=== PATIENT | female | born 1970 | race Two or more races ===

== ENCOUNTER 2023-04-18 02:28 | Emergency (ER) | payer OTHER ==
[~2023-04-18] VITALS: Ht 157.5 cm; Wt 86.2 kg
[~2023-04-18 02:28] MED LIST: FLECTOR1 EACH TD
[2023-04-18 03:57] LABS: HEMATOCRIT 41.3 % (36.0-45.00); MEAN CELL VOLUME 85.3 fL (80.00-100.00); MEAN CORPUSCULAR HGB CONC 33.9 g/dl (32.0-36.0); PLATELET COUNT 318 K/uL (150-450); RED BLOOD COUNT 4.85 M/uL (4.00-6.00)
[2023-04-18 04:10] LABS: ALBUMIN 4.1 gm/dL (3.4-5.0); BILIRUBIN TOTAL 0.56 mg/dL (0.3-1.2); CALCIUM 10.4 mg/dL (8.5-10.1); CREATININE SERUM 1.04 mg/dL (0.55-1.02); GFR 55.86; GLOBULINA 4.6 G/DL (2.4-3.5); POTASSIUM 4.15 mEq/L (3.5-5.1); TOTAL PROTEIN 8.7 gm/dL (6.4-8.2)
[2023-04-18 04:33] LABS: URINE APPEARANCE Cloudy; URINE BILIRRUBIN Negative (NEGATIVE); URINE BLOOD Negative; URINE COLOR Yellow; URINE GLUCOSE Negative (NEGATIVE); URINE LEUKOCYTE Trace; URINE NITRATE Negative; URINE PROTEIN Trace (NEGATIVE)
[2023-04-18 04:36] LABS: URINE BACTERIA 578.1 uL (0.0-1933); URINE EPITHELIAL CELLS 10.6 uL (0.0-38.8); URINE RBC 15.2 uL (0.0-20.8)
[2023-04-18 04:50] LABS: URINE WBC 1.7 uL (0.0-23.2)
[2023-04-18] MEDS ORDERED: ZOFRAN8 MG PO (09:42)
[2023-04-18] MEDS ORDERED: PEPCID AC20 MG PO (09:42)
== END 2023-04-18 09:48 | disposition home or self-care (01) ==
LOC: ER 02:28
PROVIDERS: General Practice
DX: R11.10 Vomiting, unspecified (principal)

== ENCOUNTER 2023-09-28 05:04 | Emergency (ER) | payer OTHER ==
[~2023-09-28] VITALS: Ht 157.5 cm; Wt 81.6 kg
[~2023-09-28 05:04] MED LIST changes: +PEPCID AC20 MG PO; +ZOFRAN8 MG PO
[2023-09-28] MEDS ORDERED: HALOPERIDOL LACTATE 5 MG/ML AMPUL IM STA (05:30)
[2023-09-28] MEDS ORDERED: DIPHENHYDRAMINE HCL 50 MG CAPSULE PO STA (05:31)
[2023-09-28] MEDS ORDERED: KETOROLAC TROMETHAMINE 30 MG VIAL IV STA (05:31)
[2023-09-28] MEDS ORDERED: DIPHENHYDRAMINE HCL 50 MG/ML VIAL 1ML IM STA (05:42)
== END 2023-09-28 07:36 | disposition home or self-care (01) ==
LOC: ER 05:05
DX: G43.809 Other migraine, not intractable, without status migrainosus (principal); R11.10 Vomiting, unspecified